=== PATIENT | female | born 1990 | race Caucasian/White ===

== ENCOUNTER 2016-06-24 02:29 | Emergency (ER) | payer BC, OTHER ==
[~2016-06-24] VITALS: Ht 162.6 cm; Wt 72.9 kg
[2016-06-24 02:35] VITALS: TEMP 36.7; Ht 162.6 cm; Wt 72.9 kg
[2016-06-24] MEDS ORDERED: SODIUM CHLORIDE 0.9% 1000ML 1,000 ML IV STA ×2 (02:52)
[2016-06-24 03:27] LABS: BASO % 0.2 %; BASO ABS # 0.03 K/uL (0-0.2); COMPLETE YES; EOS % 1.8 %; HEMATOCRIT 35.7 % (37-47); IG% 0.4 %; LYMPH % 15.8 %; LYMPH ABS # 2.14 K/uL (1.2-3.4); MEAN CELL VOLUME 89.5 fL (80-100); MEAN CORPUSCULAR HEMOGLOBIN 31.1 pg (25-34); MEAN CORPUSCULAR HGB CONC 34.7 g/dl (32-36); MEAN PLATELET VOLUME 9.2 fL (7.4-10.4); MONO % 6.9 %; NEUT % 74.9 %; PLATELET COUNT 216 K/uL (130-400); RED BLOOD COUNT 3.99 M/uL (4.2-5.4); WHITE BLOOD COUNT 13.55 K/uL (4.8-10.8)
[2016-06-24] MEDS ORDERED: ACETAMINOPHEN 500 MG TAB PO ONE (03:30)
[2016-06-24] MEDS ORDERED: ACETAMINOPHEN 500 MG TAB PO STA (03:32)
[2016-06-24 03:45] LABS: ALT/SGPT 18 U/L (12-78); AST/SGOT 13 U/L (15-37); BLOOD UREA NITROGEN 15 mg/dl (7-18); BUN/CREATININE RATIO 18.8 (10-20); CALCIUM 8.5 mg/dl (8.5-10.1); CARBON DIOXIDE 24 mmol/L (21-32); CHLORIDE 107 mmol/L (98-107); CREATININE 0.78 mg/dl (0.60-1.20); GLUCOSE 96 mg/dl (70-99); POTASSIUM 3.3 mmol/L (3.5-5.1); SODIUM 142 mmol/L (136-145)
[2016-06-24 03:47] LABS: PREG INTERNAL NEGATIVE QC NEG CLEAR BACKGROUND; PREG INTERNAL POSITIVE QC POS CONTROL LINE
[2016-06-24 03:48] LABS: ALKALINE PHOSPHATASE 50 U/L (45-117)
[2016-06-24] MEDS ORDERED: ONDANSETRON INJ 2 MG/ML 2 ML VIAL IV STA (03:49)
[2016-06-24] MEDS ORDERED: MoRPHine SULFATE 4 MG/ML 1 ML CARP\\VIAL IV STA (03:49)
[2016-06-24 04:01] LABS: URINE APPEARANCE CLEAR (CLEAR); URINE BILIRUBIN NEG (NEG); URINE COLOR YELLOW; URINE NITRITE NEG (NEG); URINE PH 5.5 (4.5-7.5); URINE SPECIFIC GRAVITY 1.002 (1.000-1.030); UROBILINOGEN NEG (NEG); ZZUR CULT IF INDIC CLEAN CATCH YES
[2016-06-24 04:13] LABS: MANUAL MICROSCOPIC REQUIRED? NO; REVIEW REQ? NO
[2016-06-24] MEDS ORDERED: CEFTRIAXONE SOD INJ 1 GM ADDVIAL IV STA (04:49)
[2016-06-24] MEDS ORDERED: APRI28 PO (05:18)
[2016-06-24] MEDS ORDERED: SULF800T23 PO (06:05)
[2016-06-24] MEDS ORDERED: PHEN-876 PO (06:05)
[2016-06-24] MEDS ORDERED: ONDANSETRON HOME PACK 4MG OD TAB PO ONE (06:15)
[2016-06-24] MEDS ORDERED: OXYCODONE IR HOME PACK PO ONE (06:15)
[2016-06-24] MEDS ORDERED: SEPTRA DS HOME PACK 1 EA VIAL PO ONE (06:15)
[2016-06-24 06:17] VITALS: BP 131/79; PULSE 91; O2SAT 100
--- NOTE | 2016-06-24 06:19 | EMERGENCY ROOM VISIT NOTE ---
History First contact with patient: 02:34 Chief Complaint: ABDOMINAL PAIN Stated Complaint: ABD PAIN Nursing Triage Summary: Pt presents with c/o RLQ pain that began 30-60 mins [employer]. Denies n/v/d. Denies flank pain. Pt states, "I was on the way home from the bar when the pain started." Pt also reports that she had an approx 2.5 wks ago. History of Present Illness The patient is a 25 year old female who presents to the Emergency Room with complaints of right lower suprapubic pain for the past half hour. Patient had a elective 2 and half weeks ago. She took oral medications. She was 6 weeks . Patient states she had bleeding right away and has not had any issues since. No intercourse since then. She states she's in a monogamous relationship and does not feel at risk for STIs. She describes the pain as cramping, ranging in severity 6 out of 10. Nothing makes it better or worse. She complains of dysuria with frequency and urgency. Patient denies vaginal discharge, vaginal odor, vaginal bleeding, back pain, chest pain, dyspnea, fever , chills, nausea, vomiting, diarrhea. No prior abdominal surgeries. Review of Systems See HPI for pertinent positives & negatives. A total of 10 systems reviewed and were otherwise negative. Past Medical/Surgical History Tonsillectomy Social History Smoking Status: Current Every Day Smoker Alcohol Use: occasionally Drug Use: none Current/Historical Medications Scheduled Ethinyl Estrad/Desogestrel (Apri), 1 TAB PO DAILY Phenazopyridine HCl (Pyridium), 200 MG PO TID Sulfa/Trimethoprim (Bactrim Ds 800MG/160MG), 1 TAB PO BID Allergies Coded Allergies: No Known Allergies (Unverified , 06/24/16) Physical Exam Vital Signs Date Time Temp Pulse Resp B/P Pulse Ox O2 Delivery O2 Flow Rate FiO2 06/24/16 04:30 94 16 99 Room Air 06/24/16 04:19 Room Air 06/24/16 02:35 36.7 105 18 138/82 97 Room Air Physical Exam VITALS: Vitals are noted on the nurse's note and reviewed by myself. Vital signs stable. GENERAL: Pleasant female with EtOH odor, in no acute distress, nondiaphoretic, well-developed well-nourished. SKIN: The skin was without rashes, erythema, edema, or bruising. There is no tenting of the skin. Capillary reflex less than 2 seconds. HEAD: Normocephalic atraumatic. EARS: External auditory canals clear, tympanic membranes pearly peralta without erythema or effusion bilaterally. EYES: Pupils equal round and reactive to light and accommodation. Conjunctivae without injection, sclerae without icterus. Extraocular movements intact. NOSE: Patent, turbinates without inflammation or discharge. MOUTH: Mucous membranes moist. Pharynx without erythema or exudate. Uvula midline. Airway patent. Tongue does not deviate. NECK: Supple without nuchal rigidity. No lymphadenopathy. No thyromegaly. Cervical spine is nontender. No JVD. HEART: Regular rate and rhythm without murmurs gallops or rubs. LUNGS: Clear to auscultation bilaterally without wheezes, rales or rhonchi. No dullness to percussion. No retractions or accessory muscle use. ABDOMEN: Positive bowel sounds x 4. Normal tympanic percussion. Soft, tender to palpation right lower suprapubic area, without masses or organomegaly. Prince sign negative. No guarding or rebound tenderness. Right CVA tenderness exam: Normal external vaginal genitalia, minimal blood in the vault, os is closed, no CMT or adnexal tenderness. Cultures taken and sent. Freight [place] present. MUSCULOSKELETAL: No muscle atrophy, erythema, or edema noted. NEURO: Patient was alert and oriented to person place and time. Normal sensation to light and sharp touch. No focal neurological deficits. Medical Decision & Procedures Laboratory Results 06/24/16 03:15 Red Blood Count 3.99, Mean Corpuscular Volume 89.5, Mean Corpuscular Hemoglobin 31.1, Mean Corpuscular Hemoglobin Concent 34.7, Mean Platelet Volume 9.2, Neutrophils (%) (Auto) 74.9, Lymphocytes (%) (Auto) 15.8, Monocytes (%) (Auto) 6.9, Eosinophils (%) (Auto) 1.8, Basophils (%) (Auto) 0.2, Neutrophils # (Auto) 10.14, Lymphocytes # (Auto) 2.14, Monocytes # (Auto) 0.94, Eosinophils # (Auto) 0.24, Basophils # (Auto) 0.03 06/24/16 03:15 Test 06/24/16 03:15 06/24/16 03:17 06/24/16 04:50 White Blood Count 13.55 K/uL (4.8-10.8) Red Blood Count 3.99 M/uL (4.2-5.4) Hemoglobin 12.4 g/dL (12.0-16.0) Hematocrit 35.7 % (37-47) Mean Corpuscular Volume 89.5 fL (80-100) Mean Corpuscular Hemoglobin 31.1 pg (25-34) Mean Corpuscular Hemoglobin Concent 34.7 g/dl (32-36) Platelet Count 216 K/uL (130-400) Mean Platelet Volume 9.2 fL (7.4-10.4) Neutrophils (%) (Auto) 74.9 % Lymphocytes (%) (Auto) 15.8 % Monocytes (%) (Auto) 6.9 % Eosinophils (%) (Auto) 1.8 % Basophils (%) (Auto) 0.2 % Neutrophils # (Auto) 10.14 K/uL (1.4-6.5) Lymphocytes # (Auto) 2.14 K/uL (1.2-3.4) Monocytes # (Auto) 0.94 K/uL (0.11-0.59) Eosinophils # (Auto) 0.24 K/uL (0-0.5) Basophils # (Auto) 0.03 K/uL (0-0.2) RDW Standard Deviation 42.8 fL (36.4-46.3) RDW Coefficient of Variation 13.1 % (11.5-14.5) Immature Granulocyte % (Auto) 0.4 % Immature Granulocyte # (Auto) 0.06 K/uL (0.00-0.02) Urine Color YELLOW Urine Appearance CLEAR (CLEAR) Urine pH 5.5 (4.5-7.5) Urine Specific [place] 1.002 (1.000-1.030) Urine Protein NEG (NEG) Urine Glucose (UA) NEG (NEG) Urine Ketones NEG (NEG) Urine Occult Blood 2+ (NEG) Urine Nitrite NEG (NEG) Urine Bilirubin NEG (NEG) Urine Urobilinogen NEG (NEG) Urine Leukocyte Esterase LARGE (NEG) Urine WBC (Auto) >30 /hpf (0-5) Urine RBC (Auto) 0-4 /hpf (0-4) Urine Hyaline Casts (Auto) 1-5 /lpf (0-5) Urine Epithelial Cells (Auto) 10-20 /lpf (0-5) Urine Bacteria (Auto) 1+ (NEG) Anion Gap 11.0 mmol/L (3-11) Est Creatinine Clear Calc Drug Dose 108.9 ml/min Estimated GFR () 123.3 Estimated GFR (Non- 106.4 BUN/Creatinine Ratio 18.8 (10-20) Calcium Level 8.5 mg/dl (8.5-10.1) Total Bilirubin 0.3 mg/dl (0.2-1) Direct Bilirubin < 0.1 mg/dl (0-0.2) Aspartate Amino Transf (AST/SGOT) 13 U/L (15-37) Alanine Aminotransferase (ALT/SGPT) 18 U/L (12-78) Alkaline Phosphatase 50 U/L (45-117) Total Protein 7.2 gm/dl (6.4-8.2) Albumin 3.7 gm/dl (3.4-5.0) Lipase 114 U/L (73-393) Human Chorionic Gonadotropin, Qual POS (NEG) Human Chorionic Gonadotropin, Quant 23 mIU/mL Ethyl Alcohol mg/dL 110.0 mg/dl (0-3) Medications Administered Medications (Trade) Dose Ordered Sig/Raman Route Start Time Stop Time Status Last Admin Dose Admin Sodium Chloride 1,000 ml @ 999 mls/hr Q1H1M STAT IV 06/24/16 02:52 06/24/16 03:52 DC 06/24/16 02:52 999 MLS/HR Sodium Chloride (Nss 1000ml) 1,000 ml @ 125 mls/hr Q8H STAT IV 06/24/16 02:52 06/24/16 10:51 06/24/16 02:52 125 MLS/HR Acetaminophen (Tylenol Tab) 1,000 mg STK-MED ONCE PO 06/24/16 03:30 06/24/16 03:32 DC 06/24/16 03:33 1,000 MG Ceftriaxone Sodium (Rocephin Inj) 1 gm NOW STAT IV 06/24/16 04:49 06/24/16 04:50 DC 06/24/16 04:49 1 GM ED Course Prior records/ancillary studies reviewed. Triage Nursing notes reviewed. The patient's history was concerning for abdominal pain. Differential diagnosis: Etiologies such as septic , retained products of conception, PID, cyst, torsion, complication of , appendicitis, diverticulitis, PUD, biliary pathology, UTI, pancreatitis, obstruction, mesenteric ischemia, aortic pathology , infections, inflammatory bowel disease, renal colic, as well as others were entertained. Physical examination findings: As above. ER treatment provided: IV fluids On reassessment the patient felt better. Diagnostics interpreted by me: The labs revealed urine concerning for infection and sent for culture. Quant hCG at 26. Patient had a elective 2 weeks ago. This seems to be trending down. Blood type O positive Leukocytosis Imaging studies: US PELVIC/ENDOVAG: No suspicious adnexal mass. Blood flow seen in the ovaries. Retroflexed uterus. Slightly heterogeneous endometrium, measuring 7 mm in thickness. Mild free fluid in the cul-de-sac. May be physiologic. Radiologist: Mariano Cardenas M.D. Exam and history seem consistent with pyelonephritis. Patient had no tenderness to the right lower quadrant. She is declining CT imaging. I feel this is reasonable. She ate a full meal and drink without difficulties. Urine was dirty and had CVA tenderness. She was started on antibiotics. She is advised if she develops right lower quadrant pain, fever, vomiting to return to the ER immediately. She is advised to follow-up family care in a few days or here in the ER sooner. By the evaluation outlined above emergent etiologies such as appendicitis, diverticulitis, PUD, biliary pathology, pancreatitis, obstruction, mesenteric ischemia, aortic pathology, inflammatory bowel disease, renal colic, as well as others were deemed relatively unlikely. The pt informed about the findings as listed above. All questions were answered and pleased with the treatment. Return instructions were outlined and the patient was discharged in stable condition. Outpatient prescription management: Bactrim, Pyridium Referral: The patient was referred back to their primary care physician for follow-up in 2 to 3 days for a recheck of the current condition. Case reviewed by attending Medical Decision As above Impression Primary Impression: Pyelonephritis Departure Information Prescriptions Phenazopyridine HCl (Pyridium) 200 Mg Tab 200 MG PO TID for 2 Days, #6 TAB Prov: Shahida Lovett ., YOSEF 06/24/16 Sulfa/Trimethoprim (Bactrim Ds 800MG/160MG) Tab 1 TAB PO BID for 7 Days, #14 TAB Prov: Shahida Lovett ., YOSEF 06/24/16 Referrals No Doctor, Assigned (PCP) Patient Instructions [facility]
--- NOTE | 2016-06-24 07:21 | DIAGNOSTIC IMAGING REPORT ---
ULTRASOUND OF THE PELVIS CLINICAL HISTORY: Pelvic pain. 2.5 weeks previously. COMPARISON STUDY: No priors. TECHNIQUE: Real-time, grayscale, and color flow sonography of the pelvis is performed both transabdominally and endovaginally. Images are reviewed in the transverse and longitudinal planes. FINDINGS: Uterus: The retroverted uterus is normal in size and echotexture, measuring 7.6 x 4.5 x 5.3 cm. Endometrium: The endometrium is normal in appearance, and the endometrial stripe is normal in thickness measuring up to 0.7 cm. No endometrial vascularity is suggested on color imaging. Ovaries: The ovaries are normal in size and morphology. The right ovary measures 2.5 x 1.7 x 2.6 cm and the left ovary measures 3.1 x 1.3 x 2.1 cm. There are small bilateral ovarian follicles. Normal Doppler waveforms are shown within both ovaries. Pelvis: There is trace free fluid in the cul-de-sac. No concerning adnexal lesion is seen. IMPRESSION: 1. No acute sonographic abnormality is identified in the pelvis. 2. Trace free fluid is seen in the cul-de-sac, likely within physiologic limits. Electronically signed by: Beka Landeros M.D. 06/24/2016 7:20 AM Dictated Date/Time: 06/24/2016 7:18 AM
--- NOTE | 2016-06-26 11:15 | Pharmacy Progress Note ---
ED Pharmacist Culture FollowUp Date of Service: Jun 26, 2016. Patient was sent home with a prescription for Bactrim DS 1 tab PO BID x 7 days, which should cover the E coli growing from the patient's URINE culture. No action required.
[2016-06-28 01:21] LABS: CHLAMYDIA TRACH RNA*** NOT DETECTED (NOT DETECTED); GC (NEIS GONORRHOEAE)RNA** NOT DETECTED (NOT DETECTED); TRICHOMONAS VAGINALIS RNA** NOT DETECTED (NOT DETECTED)
== END 2016-06-24 06:18 | disposition home or self-care (01) ==
LOC: C.EDB 02:32 → C.EDA 06:18
DX: N12 Tubulo-interstitial nephritis, not specified as acute or chronic (principal); F17.200 Nicotine dependence, unspecified, uncomplicated